=== PATIENT | male | born 1935 | race Two or more races ===

== ENCOUNTER 2019-01-27 19:11 | Inpatient (IN) | payer MEDICARE, MEDICAID ==
[~2019-01-27] VITALS: Ht 165.1 cm; Wt 60.2 kg
[2019-01-27] MEDS ORDERED: PARO20TA24 PO (21:04)
[2019-01-27] MEDS ORDERED: LISI-660 PO (21:04)
[2019-01-27] MEDS ORDERED: METF-960 PO (21:04)
[2019-01-27] MEDS ORDERED: TERA2CAP10 PO (21:04)
[2019-01-27] MEDS ORDERED: ASPI81 PO (21:04)
[2019-01-27 21:21] LABS: BASOPHILS % (AUTO) 0.2 % (0.0-2.0); EOSINOPHILS % (AUTO) 0.1 % (1.0-6.0); HEMATOCRIT 39.3 % (41-53); HEMOGLOBIN 12.7 g/dL (13.5-17.5); LYMPHOCYTES # (AUTO) 1.2 K/uL (1.0-4.8); LYMPHOCYTES % (AUTO) 13.7 % (22.0-44.0); MEAN CORPUSCULAR HEMOGLOBIN 26.8 pg (26.0-34.0); MEAN CORPUSCULAR HGB CONC 32.4 G/dL (31.0-37.0); MEAN CORPUSCULAR VOLUME 83 fL (80-100); MONOCYTES # (AUTO) 0.4 K/uL (0.1-1.0); MONOCYTES % (AUTO) 4.3 % (2.0-9.0); NEUTROPHILS % (AUTO) 81.7 % (40.0-70.0); PLATELET COUNT (AUTO) 321 K/uL (150-450); RED BLOOD CELL COUNT(AUTO) 4.75 MIL/uL (4.50-5.90); RED CELL DISTRIBUTION WIDTH 16.1 % (11.5-14.5)
[2019-01-27 21:23] LABS: GLUCOSE,POINT OF CARE 110 MG/DL (70-110)
[2019-01-27] MEDS ORDERED: LISINOPRIL 10 MG TABLET PO ONE (21:30)
[2019-01-27 21:34] LABS: ANION GAP 11 mmol/L (8-16); CALCIUM, TOTAL 8.7 mg/dL (8.8-10.5); CARBON DIOXIDE 24 mmol/L (22-29); CHLORIDE 99 mmol/L (98-107); GLUCOSE,RANDOM 118 mg/dL (70-110); POTASSIUM 4.3 mmol/L (3.5-5.1); PROTHROMBIN TIME 10.3 SEC (9.4-11.6); SODIUM SERUM 134 mmol/L (136-145); UREA NITROGEN, BLOOD 12 mg/dL (7-18)
[2019-01-27 21:37] LABS: GLOMERULAR FILTR. RATE CALC > 60 mL/min (>60)
[2019-01-27 21:40] LABS: TROPONIN I 0.02 ng/mL (0.00-0.05)
[2019-01-27 21:43] LABS: APPEARANCE,URINE CLEAR (CLEAR); BILIRUBIN,URINE NEGATIVE (NEGATIVE); GLUCOSE, URINE (UA) 500 mg/dL (NEGATIVE); KETONES,URINE NEGATIVE (NEGATIVE); LEUKOCYTE ESTERASE ,URINE NEGATIVE (NEGATIVE); NITRATE,URINE NEGATIVE (NEGATIVE); OCCULT BLOOD,URINE NEGATIVE (NEGATIVE); PH,URINE 5.5 (5.0-8.0); PROTEIN,URINE NEGATIVE (NEGATIVE); UROBILINOGEN,URINE 0.2 mg/dL (<=1.0)
[2019-01-27 21:48] LABS: AMPHET/METH SCREEN,URINE NEGATIVE (NEGATIVE); BARBITURATE SCREEN, URINE NEGATIVE (NEGATIVE); BENZODIAZEPINES SCREEN,URINE NEGATIVE (NEGATIVE); CANNABINOID SCREEN,URINE NEGATIVE (NEGATIVE); COCAINE SCREEN,URINE NEGATIVE (NEGATIVE); METHADONE SCREEN, URINE NEGATIVE (NEGATIVE); OPIATE SCREEN,URINE NEGATIVE (NEGATIVE)
[2019-01-27 21:50] LABS: PHENCYCLIDINE SCREEN,URINE NEGATIVE (NEGATIVE)
[2019-01-27 21:52] LABS: LACTIC ACID 3.8 mmol/L (0.4-2.0)
[2019-01-27 22:00] LABS: BACTERIA,URINE Rare /HPF (None Seen); RBC,URINE 0-2 /HPF (0-2); SQUAMOUS EPITHELIAL CELL,UR Rare /LPF (None Seen); WBC,URINE 0-2 /HPF (0-5)
[2019-01-27 22:00] LABS: ALANINE AMINOTRANSFERASE 22 U/L (12-78); ALBUMIN 3.7 g/dL (3.4-5.0); ALKALINE PHOSPHATASE 95 U/L (46-116); ASPARTATE AMINOTRANSFERASE 29 U/L (15-37); BILIRUBIN,TOTAL 0.4 mg/dL (0.1-1.0); CREATINE KINASE, TOTAL ONLY 491 U/L (39-308); TOTAL PROTEIN, SERUM 8.1 g/dL (6.4-8.2)
[2019-01-27] MEDS ORDERED: SODIUM CHLORIDE 0.9% 1,000 ML IV ONE (22:00)
[2019-01-27] MEDS ORDERED: 0.9% SODIUM CHLORIDE 10 ML SYRINGE IVP PRN (22:45)
[2019-01-27] MEDS ORDERED: ACETAMINOPHEN 325 MG TABLET PO PRN (22:45)
[2019-01-27] MEDS ORDERED: DEXTROSE 50%-WATER 25 GM/50 ML SYRINGE IVP ONE ×2 (23:45)
[2019-01-27] MEDS ORDERED: DEXTROSE 5%-0.45% SODIUM CHL 1,000 ML IV ONE (23:45)
[2019-01-28] MEDS ORDERED: MAGNESIUM HYDROXIDE SUSPENSION 30 ML UDCUP PO PRN
[2019-01-28] MEDS ORDERED: 0.9% SODIUM CHLORIDE 10 ML SYRINGE IVP PRN
[2019-01-28] MEDS ORDERED: ONDANSETRON HCL 4 MG/2 ML VIAL IVP PRN
[2019-01-28] MEDS ORDERED: ACETAMINOPHEN 325 MG TABLET PO PRN
[2019-01-28] MEDS ORDERED: OxyCODONE HCL/ACETAMINOPHEN 5-325 MG TABLET PO PRN ×2
[2019-01-28] MEDS: TERAZOSIN HCL 2 MG CAPSULE PO SCH ×2 (00:43→21:33)
[2019-01-28] MEDS: DOCUSATE SODIUM 100 MG CAPSULE PO SCH ×2 (00:43→08:27)
[2019-01-28 00:56] LABS: GLUCOSE,POINT OF CARE 121 MG/DL (70-110)
[2019-01-28 02:20] LABS: GLUCOSE,POINT OF CARE 71 MG/DL (70-110)
[2019-01-28] MEDS ORDERED: SODIUM CHLORIDE 77 MEQ in DEXTROSE 10%-WATER 1,000 ML IV ONE (02:30)
[2019-01-28 04:22] LABS: GLUCOSE,POINT OF CARE 69 MG/DL (70-110)
[2019-01-28 05:30] LABS: GLUCOSE,POINT OF CARE 81 MG/DL (70-110)
[2019-01-28 05:36] LABS: BASOPHILS % (AUTO) 0.5 % (0.0-2.0); EOSINOPHILS % (AUTO) 0.9 % (1.0-6.0); HEMATOCRIT 36.3 % (41-53); LYMPHOCYTES % (AUTO) 32.7 % (22.0-44.0); MEAN CORPUSCULAR HGB CONC 33.1 G/dL (31.0-37.0); MEAN CORPUSCULAR VOLUME 82 fL (80-100); MONOCYTES # (AUTO) 0.5 K/uL (0.1-1.0); MONOCYTES % (AUTO) 8.3 % (2.0-9.0); NEUTROPHILS # (AUTO) 3.6 K/uL (1.8-7.7); NEUTROPHILS % (AUTO) 57.6 % (40.0-70.0); PLATELET COUNT (AUTO) 305 K/uL (150-450); RED BLOOD CELL COUNT(AUTO) 4.44 MIL/uL (4.50-5.90); RED CELL DISTRIBUTION WIDTH 16.2 % (11.5-14.5)
[2019-01-28 05:50] LABS: ALANINE AMINOTRANSFERASE 20 U/L (12-78); ALBUMIN 3.2 g/dL (3.4-5.0); ALKALINE PHOSPHATASE 78 U/L (46-116); ANION GAP 10 mmol/L (8-16); ASPARTATE AMINOTRANSFERASE 28 U/L (15-37); BILIRUBIN,TOTAL 0.3 mg/dL (0.1-1.0); CALCIUM, TOTAL 8.3 mg/dL (8.8-10.5); CARBON DIOXIDE 27 mmol/L (22-29); CHLORIDE 104 mmol/L (98-107); GLOMERULAR FILTR. RATE CALC > 60 mL/min (>60); GLUCOSE,RANDOM 79 mg/dL (70-110); POTASSIUM 3.3 mmol/L (3.5-5.1); SODIUM SERUM 141 mmol/L (136-145); TOTAL PROTEIN, SERUM 6.9 g/dL (6.4-8.2); UREA NITROGEN, BLOOD 10 mg/dL (7-18)
[2019-01-28 06:42] LABS: GLUCOSE,POINT OF CARE 91 MG/DL (70-110)
[2019-01-28 08:03] LABS: GLUCOSE,POINT OF CARE 99 MG/DL (70-110)
[2019-01-28] MEDS: ASPIRIN 81 MG CHEWABLE TABLET PO SCH (08:27)
[2019-01-28] MEDS: LISINOPRIL 5 MG TABLET PO SCH (09:11)
[2019-01-28] MEDS: PARoxetine HCL 20 MG TABLET PO SCH (09:11)
[2019-01-28 09:14] LABS: GLUCOSE,POINT OF CARE 175 MG/DL (70-110)
[2019-01-28 10:19] LABS: GLUCOSE,POINT OF CARE 203 MG/DL (70-110)
[2019-01-28] MEDS ORDERED: INSLAN SQ (10:45)
[2019-01-28 11:56] LABS: GLUCOSE,POINT OF CARE 172 MG/DL (70-110)
[2019-01-28] MEDS ORDERED: DOCUSATE SODIUM 100 MG CAPSULE PO PRN (12:15)
[2019-01-28 12:58] LABS: GLUCOSE,POINT OF CARE 179 MG/DL (70-110)
[2019-01-28 13:27] LABS: LACTIC ACID 2.2 mmol/L (0.4-2.0)
[2019-01-28 15:35] LABS: GLUCOSE,POINT OF CARE 140 MG/DL (70-110)
[2019-01-28] MEDS: SODIUM CHLORIDE 0.9% 1,000 ML IV SCH (15:54)
[2019-01-28 17:11] VITALS: BP 153/76
[2019-01-28 18:20] VITALS: BP 157/79
[2019-01-28 18:31] LABS: GLUCOMETER DEV NAME(LOC) 5S.2A; GLUCOSE,POINT OF CARE 57 MG/DL (70-110)
[2019-01-28 18:31] LABS: GLUCOMETER DEV NAME(LOC) 5S.2A; GLUCOSE,POINT OF CARE 79 MG/DL (70-110)
[2019-01-28 19:21] LABS: GLUCOMETER DEV NAME(LOC) 5S.2A; GLUCOSE,POINT OF CARE 188 MG/DL (70-110)
[2019-01-28 20:08] VITALS: BP 127/72
[2019-01-29 00:03] VITALS: BP 118/69
[2019-01-29] MEDS ORDERED: DEXTROSE 50%-WATER 25 GM/50 ML SYRINGE IVP ONE ×3 (05:40→06:00)
[2019-01-29 05:47] LABS: GLUCOMETER DEV NAME(LOC) 5N.1; GLUCOSE,POINT OF CARE 174 MG/DL (70-110)
[2019-01-29] MEDS: SODIUM CHLORIDE 0.9% 1,000 ML IV SCH (06:30)
[2019-01-29] MEDS ORDERED: DEXTROSE 5%-0.45% SODIUM CHL 1,000 ML IV SCH (06:45)
[2019-01-29 07:04] VITALS: BP_SYST 124; BP_SYST 168; BP_DIAS 102; BP_DIAS 75
[2019-01-29 07:46] LABS: HEMOGLOBIN A1C 7.5 % (4.5-6.2)
[2019-01-29 07:47] LABS: ALANINE AMINOTRANSFERASE 26 U/L (12-78); ALBUMIN 3.3 g/dL (3.4-5.0); ALKALINE PHOSPHATASE 86 U/L (46-116); ANION GAP 7 mmol/L (8-16); ASPARTATE AMINOTRANSFERASE 25 U/L (15-37); BILIRUBIN,TOTAL 0.3 mg/dL (0.1-1.0); CALCIUM, TOTAL 8.6 mg/dL (8.8-10.5); CARBON DIOXIDE 27 mmol/L (22-29); CHLORIDE 104 mmol/L (98-107); CHOL/HDL RATIO 5.4 (4.2-7.3); CHOLESTEROL 201 mg/dL (131-200); CREATININE 0.72 mg/dL (0.60-1.30); FREE T4 (FREE THYROXINE) 0.93 ng/dL (0.76-1.46); HDL CHOLESTEROL 37 mg/dL (40-60); HEMATOCRIT 36.6 % (41-53); LDL CHOL (CALC.) 138 mg/dL (0-130); MEAN CORPUSCULAR HEMOGLOBIN 26.8 pg (26.0-34.0); MEAN CORPUSCULAR VOLUME 82 fL (80-100); POTASSIUM 3.6 mmol/L (3.5-5.1); RED BLOOD CELL COUNT(AUTO) 4.47 MIL/uL (4.50-5.90); SODIUM SERUM 138 mmol/L (136-145); THYROID STIMULATING HORMONE 0.86 uIU/mL (0.36-3.74); TOTAL PROTEIN, SERUM 7.2 g/dL (6.4-8.2); TRIGLYCERIDES 132 mg/dL (15-150); UREA NITROGEN, BLOOD 10 mg/dL (7-18)
[2019-01-29 07:49] LABS: MEAN CORPUSCULAR HGB CONC 32.8 G/dL (31.0-37.0); NEUTROPHILS % (AUTO) 53.9 % (40.0-70.0); PLATELET COUNT (AUTO) 318 K/uL (150-450); RED CELL DISTRIBUTION WIDTH 16.3 % (11.5-14.5)
[2019-01-29 07:50] LABS: BASOPHILS % (AUTO) 0.5 % (0.0-2.0); EOSINOPHILS % (AUTO) 0.6 % (1.0-6.0); LYMPHOCYTES # (AUTO) 2.1 K/uL (1.0-4.8); MONOCYTES # (AUTO) 0.4 K/uL (0.1-1.0)
[2019-01-29 08:00] VITALS: BP 172/90
[2019-01-29 08:11] LABS: GLUCOSE,POINT OF CARE 138 MG/DL (70-110)
[2019-01-29 08:45] LABS: GLOMERULAR FILTR. RATE CALC > 60 mL/min (>60)
[2019-01-29 08:47] LABS: GLUCOSE,RANDOM 40 mg/dL (70-110)
[2019-01-29] MEDS: PARoxetine HCL 20 MG TABLET PO SCH (10:35)
[2019-01-29] MEDS: ASPIRIN 81 MG CHEWABLE TABLET PO SCH (10:35)
[2019-01-29 10:40] LABS: GLUCOSE,POINT OF CARE 164 MG/DL (70-110)
[2019-01-29] MEDS: LISINOPRIL 5 MG TABLET PO SCH (10:44)
[2019-01-29 11:06] LABS: GLUCOSE,POINT OF CARE 210 MG/DL (70-110)
[2019-01-29 11:22] LABS: GLUCOMETER DEV NAME(LOC) 5S.2A; GLUCOSE,POINT OF CARE 27 MG/DL (70-110)
[2019-01-29 11:22] LABS: GLUCOMETER DEV NAME(LOC) 5S.2A; GLUCOSE,POINT OF CARE 179 MG/DL (70-110)
[2019-01-29 12:00] VITALS: BP 156/83
[2019-01-29 13:54] LABS: GLUCOSE,POINT OF CARE 283 MG/DL (70-110)
[2019-01-29 15:26] LABS: GLUCOSE,POINT OF CARE 211 MG/DL (70-110)
[2019-01-29 16:00] VITALS: BP 149/77
[2019-01-29 16:17] LABS: GLUCOSE,POINT OF CARE 194 MG/DL (70-110)
[2019-01-29 18:38] LABS: GLUCOSE,POINT OF CARE 189 MG/DL (70-110)
[2019-01-29 20:00] VITALS: BP 145/82
[2019-01-29] MEDS: TERAZOSIN HCL 2 MG CAPSULE PO SCH (20:54)
[2019-01-29 23:42] LABS: GLUCOSE,POINT OF CARE 177 MG/DL (70-110)
[2019-01-29 23:42] LABS: GLUCOSE,POINT OF CARE 188 MG/DL (70-110)
[2019-01-29 23:42] LABS: GLUCOSE,POINT OF CARE 208 MG/DL (70-110)
[2019-01-29 23:42] LABS: GLUCOSE,POINT OF CARE 148 MG/DL (70-110)
[2019-01-29 23:59] LABS: GLUCOSE,POINT OF CARE 129 MG/DL (70-110)
[2019-01-30] VITALS (12 sets, daily range): BP systolic 124–178; BP diastolic 64–99
[2019-01-30 01:07] LABS: GLUCOSE,POINT OF CARE 121 MG/DL (70-110)
[2019-01-30 01:59] LABS: GLUCOSE,POINT OF CARE 120 MG/DL (70-110)
[2019-01-30 03:07] LABS: GLUCOSE,POINT OF CARE 116 MG/DL (70-110)
[2019-01-30 04:09] LABS: GLUCOSE,POINT OF CARE 115 MG/DL (70-110)
[2019-01-30 05:04] LABS: GLUCOSE,POINT OF CARE 125 MG/DL (70-110)
[2019-01-30 05:07] LABS: BASOPHILS % (AUTO) 0.7 % (0.0-2.0); EOSINOPHILS % (AUTO) 2.8 % (1.0-6.0); HEMATOCRIT 36.1 % (41-53); HEMOGLOBIN 12.1 g/dL (13.5-17.5); LYMPHOCYTES # (AUTO) 2.4 K/uL (1.0-4.8); LYMPHOCYTES % (AUTO) 42.8 % (22.0-44.0); MEAN CORPUSCULAR HEMOGLOBIN 27.2 pg (26.0-34.0); MEAN CORPUSCULAR HGB CONC 33.4 G/dL (31.0-37.0); MEAN CORPUSCULAR VOLUME 81 fL (80-100); MONOCYTES # (AUTO) 0.5 K/uL (0.1-1.0); MONOCYTES % (AUTO) 9.6 % (2.0-9.0); NEUTROPHILS # (AUTO) 2.5 K/uL (1.8-7.7); NEUTROPHILS % (AUTO) 44.1 % (40.0-70.0); PLATELET COUNT (AUTO) 311 K/uL (150-450); RED BLOOD CELL COUNT(AUTO) 4.44 MIL/uL (4.50-5.90)
[2019-01-30 05:32] LABS: ANION GAP 9 mmol/L (8-16); CARBON DIOXIDE 27 mmol/L (22-29); CHLORIDE 102 mmol/L (98-107); CREATININE 0.84 mg/dL (0.60-1.30); GLUCOSE,RANDOM 124 mg/dL (70-110); SODIUM SERUM 138 mmol/L (136-145); UREA NITROGEN, BLOOD 12 mg/dL (7-18)
[2019-01-30 05:33] LABS: ALANINE AMINOTRANSFERASE 21 U/L (12-78); ALBUMIN 3.2 g/dL (3.4-5.0); ALKALINE PHOSPHATASE 88 U/L (46-116); ASPARTATE AMINOTRANSFERASE 22 U/L (15-37); BILIRUBIN,TOTAL 0.4 mg/dL (0.1-1.0); CALCIUM, TOTAL 8.5 mg/dL (8.8-10.5); GLOMERULAR FILTR. RATE CALC > 60 mL/min (>60); TOTAL PROTEIN, SERUM 7.1 g/dL (6.4-8.2)
[2019-01-30 06:42] LABS: GLUCOSE,POINT OF CARE 124 MG/DL (70-110)
[2019-01-30 06:51] LABS: GLUCOSE,POINT OF CARE 127 MG/DL (70-110)
[2019-01-30] MEDS: ASPIRIN 81 MG CHEWABLE TABLET PO SCH (08:35)
[2019-01-30] MEDS: PARoxetine HCL 20 MG TABLET PO SCH (08:35)
[2019-01-30] MEDS: LISINOPRIL 5 MG TABLET PO SCH (08:35)
[2019-01-30] MEDS: TERAZOSIN HCL 2 MG CAPSULE PO SCH (08:35)
[2019-01-30 08:51] LABS: GLUCOSE,POINT OF CARE 122 MG/DL (70-110)
[2019-01-30 12:44] LABS: GLUCOSE,POINT OF CARE 277 MG/DL (70-110)
[2019-01-30 12:54] LABS: GLUCOSE,POINT OF CARE 228 MG/DL (70-110)
[2019-01-30 14:32] LABS: GLUCOSE,POINT OF CARE 307 MG/DL (70-110)
[2019-01-31 04:33] VITALS: BP 118/60
[2019-01-31 04:43] LABS: GLUCOMETER DEV NAME(LOC) 5S.1; GLUCOSE,POINT OF CARE 197 MG/DL (70-110)
[2019-01-31 04:43] LABS: GLUCOMETER DEV NAME(LOC) 5N.2; GLUCOSE,POINT OF CARE 205 MG/DL (70-110)
[2019-01-31 04:43] LABS: GLUCOMETER DEV NAME(LOC) 5S.1; GLUCOSE,POINT OF CARE 231 MG/DL (70-110)
[2019-01-31 04:44] LABS: GLUCOMETER DEV NAME(LOC) 5N.2; GLUCOSE,POINT OF CARE 179 MG/DL (70-110)
[2019-01-31 04:44] LABS: GLUCOMETER DEV NAME(LOC) 5N.2; GLUCOSE,POINT OF CARE 147 MG/DL (70-110)
[2019-01-31 04:44] LABS: GLUCOMETER DEV NAME(LOC) 5N.2; GLUCOSE,POINT OF CARE 185 MG/DL (70-110)
[2019-01-31 06:23] LABS: BASOPHILS % (AUTO) 0.7 % (0.0-2.0); EOSINOPHILS % (AUTO) 2.4 % (1.0-6.0); HEMATOCRIT 33.9 % (41-53); HEMOGLOBIN 11.5 g/dL (13.5-17.5); LYMPHOCYTES # (AUTO) 2.2 K/uL (1.0-4.8); LYMPHOCYTES % (AUTO) 30.1 % (22.0-44.0); MEAN CORPUSCULAR HEMOGLOBIN 27.7 pg (26.0-34.0); MEAN CORPUSCULAR HGB CONC 33.9 G/dL (31.0-37.0); MEAN CORPUSCULAR VOLUME 82 fL (80-100); MONOCYTES # (AUTO) 0.5 K/uL (0.1-1.0); NEUTROPHILS # (AUTO) 4.3 K/uL (1.8-7.7); NEUTROPHILS % (AUTO) 59.8 % (40.0-70.0); PLATELET COUNT (AUTO) 330 K/uL (150-450); RED BLOOD CELL COUNT(AUTO) 4.15 MIL/uL (4.50-5.90); RED CELL DISTRIBUTION WIDTH 16.1 % (11.5-14.5)
[2019-01-31 06:32] LABS: ANION GAP 7 mmol/L (8-16); CALCIUM, TOTAL 8.9 mg/dL (8.8-10.5); CARBON DIOXIDE 28 mmol/L (22-29); CHLORIDE 99 mmol/L (98-107); GLUCOSE,RANDOM 160 mg/dL (70-110); POTASSIUM 3.9 mmol/L (3.5-5.1); SODIUM SERUM 134 mmol/L (136-145); UREA NITROGEN, BLOOD 15 mg/dL (7-18)
[2019-01-31 06:44] LABS: GLOMERULAR FILTR. RATE CALC > 60 mL/min (>60)
[2019-01-31 07:45] VITALS: BP 120/66
[2019-01-31 07:47] LABS: GLUCOMETER DEV NAME(LOC) 5N.2; GLUCOSE,POINT OF CARE 152 MG/DL (70-110)
[2019-01-31 08:10] LABS: GLUCOSE,POINT OF CARE 247 MG/DL (70-110)
[2019-01-31] MEDS: PARoxetine HCL 20 MG TABLET PO SCH (08:36)
[2019-01-31] MEDS: LISINOPRIL 5 MG TABLET PO SCH (08:36)
[2019-01-31] MEDS: ASPIRIN 81 MG CHEWABLE TABLET PO SCH (08:36)
[2019-01-31 11:01] VITALS: BP 151/69
[2019-01-31 11:52] LABS: GLUCOMETER DEV NAME(LOC) 5N.2; GLUCOSE,POINT OF CARE 246 MG/DL (70-110)
[2019-01-31 11:52] LABS: GLUCOMETER DEV NAME(LOC) 5N.2; GLUCOSE,POINT OF CARE 148 MG/DL (70-110)
[2019-01-31 17:39] LABS: GLUCOMETER DEV NAME(LOC) 5N.2; GLUCOSE,POINT OF CARE 200 MG/DL (70-110)
== END 2019-01-31 14:15 | disposition home or self-care (01) | DRG 917 ==
LOC: EMS 19:11 → 5S 01-28 16:08 → ICU 01-29 07:45 → 5N 01-30 17:12
PROVIDERS: ADMIT Internal Medicine; ATTEND Internal Medicine
DX: T38.3X1A Poisoning by insulin and oral hypoglycemic [antidiabetic] drugs, accidental (unintentional), initial encounter (principal); G93.41 Metabolic encephalopathy; E87.1 Hypo-osmolality and hyponatremia; E87.2 Acidosis; E11.649 Type 2 diabetes mellitus with hypoglycemia without coma; I10 Essential (primary) hypertension; D63.8 Anemia in other chronic diseases classified elsewhere; E11.51 Type 2 diabetes mellitus with diabetic peripheral angiopathy without gangrene; E86.1 Hypovolemia; E87.6 Hypokalemia; I25.10 Atherosclerotic heart disease of native coronary artery without angina pectoris; N40.0 Benign prostatic hyperplasia without lower urinary tract symptoms; Z79.4 Long term (current) use of insulin; Z89.511 Acquired absence of right leg below knee; Z89.512 Acquired absence of left leg below knee
CPT/HCPCS: 70450; 70544; 70551; 83036; 83605; 83735; 84439; 84443; 87081; 93005; 93880; 97116; 97162; 97530; G0378; J7030; J7131